=== PATIENT | female | born 2000 | race Two or more races ===

== ENCOUNTER → 2023-05-07 | Outpatient (REF) | payer OTHER | LOC: M PLALAB 10:39 | PROVIDERS: ATTEND Advanced Practice Midwife | DX: O99.211 Obesity complicating pregnancy, first trimester (principal) ==

== ENCOUNTER → 2023-05-07 | Outpatient (CLI) | payer SELFPAY ==
[2023-05-07 15:32] LABS: HEMATOCRIT 42.8 % (36.0-47.0); HEMOGLOBIN 14.1 g/dl (12.0-15.5); MEAN CORPUSCULAR HGB CONC 32.9 g/dl (32.0-36.5); MEAN CORPUSCULAR VOLUME 88.1 fl (80.0-96.0); PLATELET COUNT, AUTOMATED 186 10^3/uL (150-450); RED BLOOD COUNT 4.86 10^6/uL (4.00-5.40); WHITE BLOOD COUNT 6.7 10^3/uL (4.0-10.0)
[2023-05-07 16:08] LABS: HIV 1&2 SCREEN NEGATIVE (NEGATIVE)
[2023-05-07 16:16] LABS: HEPATITIS C VIRUS ABY INDEX 0.04 INDEX (<0.8)
== END ==
LOC: M PLALAB 10:42
PROVIDERS: ATTEND Advanced Practice Midwife
DX: O99.211 Obesity complicating pregnancy, first trimester (principal); Z3A.00 Weeks of gestation of pregnancy not specified

== ENCOUNTER → 2023-06-04 | Outpatient (REF) | payer SELFPAY ==
[2023-06-04 17:01] LABS: GC DNA AMPLIFICATION NEGATIVE (NEGATIVE)
== END ==
LOC: M SFHCWAGY 12:46
PROVIDERS: ATTEND Advanced Practice Midwife
DX: O99.211 Obesity complicating pregnancy, first trimester (principal)

== ENCOUNTER → 2023-07-14 | Outpatient (CLI) | payer SELFPAY | LOC: M WHC 08:59 | PROVIDERS: ATTEND Advanced Practice Midwife | DX: O99.212 Obesity complicating pregnancy, second trimester (principal) ==

== ENCOUNTER → 2023-09-16 | Outpatient (CLI) | payer SELFPAY ==
[2023-09-16 13:35] LABS: HEMATOCRIT 38.1 % (36.0-47.0); HEMOGLOBIN 12.6 g/dl (12.0-15.5); MEAN CORPUSCULAR HEMOGLOBIN 31.7 pg (27.0-33.0); MEAN CORPUSCULAR HGB CONC 33.1 g/dl (32.0-36.5); PLATELET COUNT, AUTOMATED 142 10^3/uL (150-450); RED BLOOD COUNT 3.97 10^6/uL (4.00-5.40); WHITE BLOOD COUNT 7.9 10^3/uL (4.0-10.0)
== END ==
LOC: M PLALAB 10:42
PROVIDERS: ATTEND Advanced Practice Midwife
DX: O99.212 Obesity complicating pregnancy, second trimester (principal)

== ENCOUNTER → 2023-11-10 | Outpatient (CLI) | payer SELFPAY ==
[2023-11-10 13:58] LABS: HEMATOCRIT 37.5 % (36.0-47.0); HEMOGLOBIN 12.6 g/dl (12.0-15.5); MEAN CORPUSCULAR HEMOGLOBIN 31.4 pg (27.0-33.0); MEAN CORPUSCULAR HGB CONC 33.6 g/dl (32.0-36.5); MEAN CORPUSCULAR VOLUME 93.5 fl (80.0-96.0); PLATELET COUNT, AUTOMATED 153 10^3/uL (150-450); RED BLOOD COUNT 4.01 10^6/uL (4.00-5.40); WHITE BLOOD COUNT 9.5 10^3/uL (4.0-10.0)
== END ==
LOC: M PLALAB 11:06
PROVIDERS: ATTEND Advanced Practice Midwife
DX: Z34.03 Encounter for supervision of normal first pregnancy, third trimester (principal)

== ENCOUNTER → 2023-11-10 | Outpatient (REF) | payer SELFPAY | LOC: M PLALAB 13:32 | PROVIDERS: ATTEND Advanced Practice Midwife | DX: Z34.03 Encounter for supervision of normal first pregnancy, third trimester (principal) ==

== ENCOUNTER 2023-12-12 07:07 | Inpatient (IN) | payer SELFPAY ==
[~2023-12-12] VITALS: Ht 170.2 cm; Wt 125.6 kg
[2023-12-12] VITALS (10 sets, daily range): BP systolic 121–148; BP diastolic 63–91; O2SAT 97
[2023-12-12] MEDS ORDERED: PRENTAB9 PO (07:34)
[2023-12-12] MEDS: LACTATED RINGER'S 1000 ML IV STA (08:27)
[2023-12-12] MEDS ORDERED: TRANEXAMIC ACID INJection 1,000 MG in NS 100 ML IV PRN (08:30)
[2023-12-12] MEDS ORDERED: LR 1,000 ML IV SCH (08:30)
[2023-12-12] MEDS ORDERED: CARBOPROST TROMETHAMINE 250 MCG/ML AMP IM PRN (08:30)
[2023-12-12] MEDS ORDERED: METHYLERGONOVINE MALEATE 0.2MG/ML 1ML VIAL IM PRN (08:30)
[2023-12-12 09:15] LABS: HEMATOCRIT 41.5 % (36.0-47.0); HEMOGLOBIN 14.4 g/dl (12.0-15.5); MEAN CORPUSCULAR HEMOGLOBIN 31.3 pg (27.0-33.0); MEAN CORPUSCULAR HGB CONC 34.7 g/dl (32.0-36.5); MEAN CORPUSCULAR VOLUME 90.2 fl (80.0-96.0); PLATELET COUNT, AUTOMATED 148 10^3/uL (150-450); WHITE BLOOD COUNT 14.8 10^3/uL (4.0-10.0)
[2023-12-12 10:07] LABS: HEPATITIS C VIRUS ABY INDEX < 0.02 INDEX (<0.8)
[2023-12-12] MEDS: OXYTOCIN DRIP 30 UNITS in IV 1 EA IV PRN (15:18)
[2023-12-12] MEDS: LIDOCAINE 1% MDV 20ML VIAL INFIL PRN (15:18)
[2023-12-12] MEDS: OXYTOCIN DRIP 30 UNITS in IV 1 EA IV SCH (15:35)
[2023-12-12] MEDS ORDERED: CALCIUM CARBONATE 500 MG CHEW U/D PO PRN (15:35)
[2023-12-12] MEDS ORDERED: ONDANSETRON 4MG 2ML VIAL IV PRN (15:35)
[2023-12-12] MEDS ORDERED: RHO(D) IMMUNE GLOBULIN/MALTOSE 500MCG(2500IU)/2.2ML VIAL (WINRHO) IM SCH (15:35)
[2023-12-12] MEDS: ACETAMINOPHEN TAB 650MG DOSE (2X325MG) PO PRN (16:06)
[2023-12-12] MEDS: DIBUCAINE 1% OINTMENT 30GM TOP PRN (20:47)
[2023-12-12] MEDS: IBUPROFEN 600MG TAB PO PRN (20:47)
[2023-12-12] MEDS: DOCUSATE SODIUM 100MG CAPSULE PO PRN (20:47)
[2023-12-13 06:00] VITALS: BP 114/57; O2SAT 97
[2023-12-13] MEDS: PRENATAL VITAMINS CHEWABLE TABLET PO SCH (11:01)
[2023-12-13] MEDS: FERROUS SULFATE 325MG TAB PO SCH (11:01)
[2023-12-13] MEDS: IBUPROFEN 800 MG TAB PO PRN (11:02)
[2023-12-13] MEDS: ANUSOL HC CREAM 30GM TOP PRN (11:02)
[2023-12-13 18:00] VITALS: BP 116/61; O2SAT 100
[2023-12-14 06:00] VITALS: BP_SYST 131; BP_SYST 137; BP_DIAS 85; O2SAT 99
[2023-12-14] MEDS ORDERED: MEASLES,MUMPS,RUBELLA VACCINE INJ (MMR-II) SC.IMMUN ONE (09:00)
[2023-12-14] MEDS: ACETAMINOPHEN 500 MG TAB PO PRN (09:28)
[2023-12-14] MEDS ORDERED: ACET-683 PO (09:35)
[2023-12-14] MEDS ORDERED: IBUP80TA PO (09:35)
== END 2023-12-14 12:15 | disposition home or self-care (01) | DRG 560 ==
LOC: M LDO 07:07 → M LDI 08:32 → M OBS 17:05
PROVIDERS: ADMIT Obstetrics & Gynecology; ATTEND Obstetrics & Gynecology
PROC: 10E0XZZ Delivery of Products of Conception, External Approach (ICD-10-PCS; principal; 2023-12-12)
PROC: 0KQM0ZZ Repair Perineum Muscle, Open Approach (ICD-10-PCS; 2023-12-12)
DX: O48.0 Post-term pregnancy (principal); Z68.41 Body mass index [BMI] 40.0-44.9, adult; E66.9 Obesity, unspecified; Z37.0 Single live birth; Z3A.40 40 weeks gestation of pregnancy; O99.214 Obesity complicating childbirth; O70.1 Second degree perineal laceration during delivery

== ENCOUNTER → 2024-04-07 | Outpatient (CLI) | payer SELFPAY ==
[~2024-04-07] MED LIST: ACET-683 PO; IBUP80TA PO; PRENTAB9 PO
== END ==
LOC: M WHC 07:56
PROVIDERS: ATTEND Advanced Practice Midwife
DX: R10.13 Epigastric pain (principal); K80.20 Calculus of gallbladder without cholecystitis without obstruction

== ENCOUNTER 2024-06-02 06:41 | Day surgery (SDC) | payer SELFPAY ==
[~2024-06-02] VITALS: Ht 170.2 cm; Wt 116.0 kg
[2024-06-02] MEDS ORDERED: LIDOCAINE 2% 100MG/5ML SDV (FOR ANES.) As Ordered ONE (07:00)
[2024-06-02] MEDS ORDERED: ONDANSETRON 4MG 2ML VIAL As Ordered ONE (07:00)
[2024-06-02] MEDS ORDERED: ROCURONIUM BROMIDE 50MG/5ML VIAL As Ordered ONE (07:00)
[2024-06-02] MEDS ORDERED: ACETAMINOPHEN 1000MG 100ML IV BAG As Ordered ONE (07:00)
[2024-06-02] MEDS ORDERED: SUGAMMADEX SODIUM 500 MG/5 ML VIAL (BRIDION) As Ordered ONE (07:00)
[2024-06-02] MEDS ORDERED: dexmedeTOMIDine (4MCG/ML)200MCG/50ML BTL (PRECEDEX) As Ordered ONE (07:00)
[2024-06-02] MEDS ORDERED: propofoL 200 MG/20 ML VIAL As Ordered ONE (07:00)
[2024-06-02] MEDS ORDERED: MIDAZOLAM INJ 2MG/2ML VIAL As Ordered ONE (07:01)
[2024-06-02] MEDS ORDERED: fentaNYL 100 MCG/2 ML INJECTION As Ordered ONE (07:01)
[2024-06-02] MEDS: NS 1,000 ML IV SCH (07:18)
[2024-06-02] MEDS: ceFAZolin 1GM VIAL As Ordered ONE (07:40)
[2024-06-02] MEDS: ceFAZolin SOD 2 GM in IV 1 EA IV ONE (07:40)
[2024-06-02] MEDS: INDOCYANINE GREEN 25MG VIAL (IC-GREEN) IV ONE (07:40)
[2024-06-02] MEDS: HEPARIN SOD (PORCINE) 5000UNITS/ML 1ML VIAL/SYRINGE SQ ONE (07:47)
[2024-06-02] MEDS ORDERED: HYDROmorphone HCL 2MG/ML 1ML VIAL As Ordered ONE (08:38)
[2024-06-02] MEDS ORDERED: ONDANSETRON 4MG 2ML VIAL IV PRN (09:05)
[2024-06-02] MEDS ORDERED: HYDROMORPHONE HCL 0.5 MG/ 0.5 ML SYRINGE IV PRN (09:05)
[2024-06-02] MEDS ORDERED: NS 1,000 ML IV SCH (09:05)
[2024-06-02] MEDS ORDERED: fentaNYL 100 MCG/2 ML INJECTION IV PRN (09:05)
[2024-06-02 10:10] VITALS: BP 131/82
[2024-06-02] MEDS: oxyCODONE 5MG TAB PO PRN (10:20)
[2024-06-02 10:25] VITALS: TEMP 98; O2SAT 98
== END 2024-06-02 10:51 | disposition home or self-care (01) ==
LOC: M SDC 06:41
PROVIDERS: ATTEND Surgery
DX: K80.10 Calculus of gallbladder with chronic cholecystitis without obstruction (principal)
CPT/HCPCS: 47562; 81025; 88304; J0131; J0665; J0690; J1100; J1171; J2250; J2405; J3010; Q9968; S2900

== ENCOUNTER → 2025-03-02 | Outpatient (CLI) | payer SELFPAY | LOC: M WHC 09:07 | PROVIDERS: ATTEND Advanced Practice Midwife | DX: O99.212 Obesity complicating pregnancy, second trimester (principal); Z3A.20 20 weeks gestation of pregnancy ==

== ENCOUNTER → 2025-03-15 | Outpatient (REF) | payer SELFPAY | LOC: M PLALAB 13:14 | PROVIDERS: ATTEND Advanced Practice Midwife | DX: Z53.9 Procedure and treatment not carried out, unspecified reason (principal) ==

== ENCOUNTER → 2025-04-07 | Outpatient (CLI) | payer SELFPAY | LOC: M WHC 07:44 | PROVIDERS: ATTEND Advanced Practice Midwife | DX: O99.212 Obesity complicating pregnancy, second trimester (principal); Z3A.25 25 weeks gestation of pregnancy ==

== ENCOUNTER → 2025-06-27 | Outpatient (REF) | payer OTHER | LOC: M SFHCWAGY 12:55 | PROVIDERS: ATTEND Advanced Practice Midwife | DX: Z34.03 Encounter for supervision of normal first pregnancy, third trimester (principal); Z3A.37 37 weeks gestation of pregnancy ==

== ENCOUNTER → 2025-06-27 | Outpatient (CLI) | payer OTHER | LOC: M WHC 09:38 | PROVIDERS: ATTEND Advanced Practice Midwife | DX: O99.213 Obesity complicating pregnancy, third trimester (principal) ==

== ENCOUNTER → 2025-07-12 | Outpatient (CLI) | payer OTHER ==
[2025-07-12 13:46] LABS: PLATELET COUNT, AUTOMATED 166 10^3/uL (150-450)
[2025-07-12 13:47] LABS: LDH LACTATE DEHYDROGENASE 182 U/L (120-246)
[2025-07-12 13:48] LABS: ALT/SGPT 15 U/L (7.0-40); AST/SGOT 19 U/L (<34); CREATININE FOR GFR 0.54 MG/DL (0.55-1.30); GLOMERULAR FILTRATION RATE > 90.0 (>60)
[2025-07-12 14:16] LABS: TOTAL PROTEIN,RANDOM URINE < 6.0 MG/DL (0.0-14.0)
== END ==
LOC: M PLALAB 11:01
PROVIDERS: ATTEND Advanced Practice Midwife
DX: O16.3 Unspecified maternal hypertension, third trimester (principal)

== ENCOUNTER 2025-07-17 08:17 | Inpatient (IN) | payer OTHER ==
[2025-07-17] VITALS (11 sets, daily range): BP systolic 113–143; BP diastolic 65–89; O2SAT 97–98
[~2025-07-17] VITALS: Ht 172.7 cm; Wt 127.2 kg
[2025-07-17] MEDS ORDERED: METHYLERGONOVINE MALEATE 0.2 MG/ML 1 ML VIAL IM PRN (08:30)
[2025-07-17] MEDS ORDERED: OXYTOCIN INJ 10UNITS/ML 1ML VIAL IM PRN (08:30)
[2025-07-17] MEDS ORDERED: CARBOPROST TROMETHAMINE 250 MCG/ML AMP IM PRN (08:30)
[2025-07-17] MEDS ORDERED: LIDOCAINE 1% MDV 20 ML VIAL INFIL PRN (08:30)
[2025-07-17] MEDS ORDERED: OXYTOCIN DRIP 30 UNITS in IV 1 EA IV PRN (08:30)
[2025-07-17] MEDS ORDERED: PNV1TABL16 PO (08:42)
[2025-07-17] MEDS ORDERED: TUMS500C PO (08:43)
[2025-07-17] MEDS ORDERED: HOME MED LIST COMPLETE! XX SCH (08:45)
[2025-07-17 09:12] LABS: PLATELET COUNT, AUTOMATED 172 10^3/uL (150-450)
[2025-07-17] MEDS: miSOPROStol 50 MCG 1/2 TABLET PO SCH (09:18)
[2025-07-17 10:12] LABS: HIV 1&2 SCREEN NEGATIVE (NEGATIVE)
[2025-07-17 10:19] LABS: HEPATITIS C VIRUS ABY INDEX 0.02 INDEX (<0.8)
[2025-07-17] MEDS: LR 1,000 ML IV SCH (17:49)
[2025-07-17] MEDS: OXYTOCIN DRIP 30 UNITS in IV 1 EA IV SCH (17:58)
[2025-07-17] MEDS ORDERED: NALOXONE INJ 0.4 MG/1 ML VIAL IV PRN (23:40)
[2025-07-17] MEDS ORDERED: ONDANSETRON 4MG/2ML VIAL IV PRN (23:40)
[2025-07-17] MEDS ORDERED: diphenhydrAMINE 50 MG/ML VIAL IV PRN (23:40)
[2025-07-17] MEDS ORDERED: EPIDURAL/PCA KEYS XX PRN (23:40)
[2025-07-17] MEDS: FENTANYL/ROPIVACAINE/NACL BAG 100 ML EPIDURAL SCH (23:50)
[2025-07-18] MEDS: LR 500 ML IV PRN (00:01)
[2025-07-18] MEDS: TRANEXAMIC ACID INJection 1,000 MG in NS 100 ML IV PRN (02:42)
[2025-07-18] MEDS ORDERED: RHOGAM 300MCG (1500IU) INJ IM SCH (03:10)
[2025-07-18] MEDS ORDERED: IBUPROFEN 600 MG TAB PO PRN (03:10)
[2025-07-18] MEDS ORDERED: ANUSOL HC CREAM 30 GM TOP PRN (03:10)
[2025-07-18] MEDS ORDERED: ACETAMINOPHEN 325 MG TAB PO PRN (03:10)
[2025-07-18] MEDS ORDERED: DIBUCAINE 1% OINTMENT 30 GM TOP PRN (03:10)
[2025-07-18] MEDS ORDERED: MOM 30 ML SUSPENSION UDC PO PRN (03:10)
[2025-07-18 04:53] VITALS: BP 125/68; O2SAT 98
[2025-07-18] MEDS: ACETAMINOPHEN 500 MG TAB PO PRN (05:03)
[2025-07-18 06:00] VITALS: BP 121/67; O2SAT 97
[2025-07-18] MEDS: PRENATAL VITAMINS CHEWABLE TABLET PO SCH (09:44)
[2025-07-18 10:52] VITALS: BP 120/66; O2SAT 98
[2025-07-18] MEDS: IBUPROFEN 800 MG TAB PO PRN (11:59)
[2025-07-18 15:18] VITALS: BP 114/65; O2SAT 98
[2025-07-18 18:28] VITALS: BP 122/68; O2SAT 99
[2025-07-18] MEDS: DOCUSATE SODIUM 100 MG CAPSULE PO PRN (21:00)
[2025-07-18 22:08] VITALS: BP 113/69; O2SAT 97
[2025-07-19 02:00] VITALS: BP 120/63; O2SAT 98
[2025-07-19 05:32] VITALS: BP 113/79; O2SAT 99
[2025-07-19 10:00] VITALS: BP 118/72; O2SAT 98
[2025-07-20] MEDS ORDERED: MEASLES,MUMPS,RUBELLA VACCINE INJ (MMR-II) SC.IMMUN ONE (09:00)
== END 2025-07-19 12:55 | disposition home or self-care (01) | DRG 560 ==
LOC: M LDI 08:17 → M OBS 07-18 04:16
PROVIDERS: ADMIT Advanced Practice Midwife; ATTEND Advanced Practice Midwife
PROC: 3E0P7GC Introduction of Other Therapeutic Substance into Female Reproductive, Via Natural or Artificial Opening (ICD-10-PCS; 2025-07-17)
PROC: 3E033VJ Introduction of Other Hormone into Peripheral Vein, Percutaneous Approach (ICD-10-PCS; 2025-07-17)
PROC: 10E0XZZ Delivery of Products of Conception, External Approach (ICD-10-PCS; principal; 2025-07-18)
PROC: 0HQ9XZZ Repair Perineum Skin, External Approach (ICD-10-PCS; 2025-07-18)
PROC: 10907ZC Drainage of Amniotic Fluid, Therapeutic from Products of Conception, Via Natural or Artificial Opening (ICD-10-PCS; 2025-07-18)
DX: O13.4 Gestational [pregnancy-induced] hypertension without significant proteinuria, complicating childbirth (principal); Z68.41 Body mass index [BMI] 40.0-44.9, adult; O72.1 Other immediate postpartum hemorrhage; E66.01 Morbid (severe) obesity due to excess calories; Z37.0 Single live birth; Z3A.40 40 weeks gestation of pregnancy; O99.214 Obesity complicating childbirth; O70.0 First degree perineal laceration during delivery; O48.0 Post-term pregnancy